=== PATIENT | female | born 1980 | race Two or more races ===

== ENCOUNTER 2019-06-05 22:29 | Emergency (ER) | payer MEDICAID ==
[~2019-06-05] VITALS: Ht 154.9 cm; Wt 84.1 kg
[2019-06-05 22:39] VITALS: BP 135/92
[2019-06-05 23:59] LABS: GLUCOSE,POINT OF CARE 94 MG/DL (70-110)
== END 2019-06-06 00:31 | disposition home or self-care (01) ==
LOC: EMS 22:29
DX: H60.92 Unspecified otitis externa, left ear (principal)
CPT/HCPCS: 82948

== ENCOUNTER 2021-05-03 08:36 | Emergency (ER) | payer MEDICAID ==
[~2021-05-03] VITALS: Ht 157.5 cm; Wt 80.0 kg
[2021-05-03 10:24] VITALS: BP 131/75
[2021-05-03 11:10] LABS: APPEARANCE,URINE CLEAR (CLEAR); BILIRUBIN,URINE NEGATIVE (NEGATIVE); GLUCOSE, URINE (UA) NEGATIVE (NEGATIVE); KETONES,URINE NEGATIVE (NEGATIVE); LEUKOCYTE ESTERASE ,URINE NEGATIVE (NEGATIVE); NITRATE,URINE NEGATIVE (NEGATIVE); OCCULT BLOOD,URINE SMALL (NEGATIVE); PH,URINE 6.5 (5.0-8.0); PROTEIN,URINE NEGATIVE (NEGATIVE); SPECIFIC GRAVITIY, URINE 1.022 (1.003-1.030); UROBILINOGEN,URINE <=1.0 mg/dL (<=1.0)
[2021-05-03 11:24] LABS: BACTERIA,URINE Moderate /HPF (None Seen); RBC,URINE 0-2 /HPF (0-2); SQUAMOUS EPITHELIAL CELL,UR Few /LPF (None Seen); WBC,URINE 0-2 /HPF (0-5)
[2021-05-03] MEDS ORDERED: CEPH500C3 PO (13:01)
== END 2021-05-03 13:00 | disposition left against medical advice (07) ==
LOC: EMS 08:38
DX: N39.0 Urinary tract infection, site not specified (principal)
CPT/HCPCS: 81001; 84703; 87086; 99283

== ENCOUNTER 2022-07-25 09:47 | Emergency (ER) | payer MEDICAID ==
[~2022-07-25] VITALS: Ht 153 cm; Wt 81.8 kg
[~2022-07-25 09:47] MED LIST: CEPH-558 PO
[2022-07-25] MEDS ORDERED: PENICILLIN V POTASSIUM 500 MG TABLET PO ONE (10:45)
[2022-07-25 11:13] VITALS: BP 124/76
[2022-07-25] MEDS ORDERED: AMOX500C2 PO (11:27)
== END 2022-07-25 11:48 | disposition home or self-care (01) ==
LOC: EMS 09:51
DX: H66.92 Otitis media, unspecified, left ear (principal); N83.209 Unspecified ovarian cyst, unspecified side; Z87.442 Personal history of urinary calculi
CPT/HCPCS: 99283

== ENCOUNTER 2022-10-05 16:50 | Emergency (ER) | payer MEDICAID ==
[~2022-10-05] VITALS: Ht 152.4 cm; Wt 82.0 kg
[~2022-10-05 16:50] MED LIST changes: +AMOX500C2 PO; -CEPH-558 PO
[2022-10-05 16:55] VITALS: BP 127/80; PULSE 92; RESP 16; TEMP 98.7
[2022-10-05] MEDS ORDERED: TraMADol HCL 50 MG TABLET PO ONE (17:00)
== END 2022-10-05 19:17 | disposition home or self-care (01) ==
LOC: EMS 16:51
DX: S90.31XA Contusion of right foot, initial encounter (principal); Z98.890 Other specified postprocedural states; W31.89XA Contact with other specified machinery, initial encounter; Y93.89 Activity, other specified; Y92.89 Other specified places as the place of occurrence of the external cause; Y99.8 Other external cause status
CPT/HCPCS: 99283

== ENCOUNTER 2022-12-09 22:43 | Emergency (ER) | payer MEDICAID ==
[~2022-12-09] VITALS: Ht 152.4 cm; Wt 90.0 kg
[2022-12-09 22:58] VITALS: BP 138/80; PULSE 88; RESP 17; TEMP 99.2
[2022-12-09 23:12] LABS: COVID AG,FIA SOURCE NASAL SWAB
[2022-12-09 23:16] LABS: APPEARANCE,URINE CLEAR (CLEAR); BILIRUBIN,URINE NEGATIVE (NEGATIVE); COLOR,URINE LIGHT YELLOW (YELLOW); GLUCOSE, URINE (UA) NEGATIVE (NEGATIVE); KETONES,URINE NEGATIVE (NEGATIVE); LEUKOCYTE ESTERASE ,URINE NEGATIVE (NEGATIVE); NITRATE,URINE NEGATIVE (NEGATIVE); OCCULT BLOOD,URINE NEGATIVE (NEGATIVE); PH,URINE 6.5 (5.0-8.0); PROTEIN,URINE NEGATIVE (NEGATIVE); SPECIFIC GRAVITIY, URINE 1.018 (1.003-1.030); UROBILINOGEN,URINE <=1.0 mg/dL (<=1.0)
[2022-12-09 23:31] LABS: SARS-COV2 (COVID) ANTIGEN,FIA Negative (Negative)
[2022-12-09 23:32] LABS: INFLUENZA TYPE A NEGATIVE FOR TYPE A (NEGATIVE); INFLUENZA TYPE B NEGATIVE FOR TYPE B (NEGATIVE)
[2022-12-10] MEDS ORDERED: AMOX250C4 PO (01:19)
== END 2022-12-10 01:28 | disposition home or self-care (01) ==
LOC: EMS 22:44
DX: J06.9 Acute upper respiratory infection, unspecified (principal); R05.9 Cough, unspecified; Z87.442 Personal history of urinary calculi; Z20.822 Contact with and (suspected) exposure to COVID-19
CPT/HCPCS: 71045; 81003; 84703; 87804; 99284

== ENCOUNTER 2025-01-14 20:07 | Emergency (ER) | payer MEDICAID, OTHER ==
[~2025-01-14] VITALS: Ht 157.5 cm; Wt 84.0 kg
[~2025-01-14 20:07] MED LIST changes: +AMOX250C4 PO; -AMOX500C2 PO
[2025-01-14 20:17] VITALS: BP 147/84; PULSE 96; RESP 18; TEMP 98.4; O2SAT 99
== END 2025-01-14 23:20 | disposition left against medical advice (07) ==
LOC: EMS 20:07
DX: R55 Syncope and collapse (principal); Z53.21 Procedure and treatment not carried out due to patient leaving prior to being seen by health care provider
CPT/HCPCS: 93005; 99281; Z7502